=== PATIENT | female | born 2000 | race Two or more races ===

== ENCOUNTER 2021-08-13 14:00 | Outpatient (CLI) | payer OTHER ==
[2021-08-13] MEDS ORDERED: COLLAGENASE 5 GM TUBE UD TP ONE (15:01)
[2021-08-14] MEDS ORDERED: LIDOCAINE SOLN 4% 50 ML BOTTLE ONE (08:26)
[2021-08-14] MEDS ORDERED: GENTAMICIN 0.1% CREAM 15 GM TUBE ONE (08:57)
[2021-08-14] MEDS ORDERED: MUPIROCIN 2% CREAM 15 GM TUBE TP ONE (08:57)
== END 2021-08-13 23:59 | disposition home health service (06) ==
LOC: WOU 14:00
PROVIDERS: ATTEND Surgery
DX: T81.89XD Other complications of procedures, not elsewhere classified, subsequent encounter (principal); K61.1 Rectal abscess; E66.9 Obesity, unspecified; Z68.35 Body mass index [BMI] 35.0-35.9, adult
CPT/HCPCS: 99205; A6253 ×2; A6407; J7040; G0463